=== PATIENT | male | born 1950 | race Caucasian/White ===

== ENCOUNTER 2017-04-21 15:51 | Emergency (ER) | payer OTHER, BC ==
[~2017-04-21] VITALS: Ht 190.5 cm; Wt 67.3 kg
[2017-04-21 17:19] LABS: HEMATOCRIT 42.1 % (38.0-50.0); MCH 28.3 PG (29.0-34.0); MCV 85.7 FL (86-99); MEAN PLAT.VOLUME 10.2 uM^3 (9.0-12.4); PLATELET COUNT 210 K/uL (156-360); RBC DIS.WIDTH-CV 12.7 % (11.8-14.6); RBC DIS.WIDTH-SD 39.5 % (39-53); RED BLOOD COUNT 4.91 M/uL (4.00-5.50); WHITE BLOOD COUNT 5.6 K/uL (4.1-10.2)
[2017-04-21 17:28] LABS: CHLORIDE 109 mEq/L (99-109); SODIUM 144 mEq/L (136-147)
[2017-04-21 17:30] LABS: GLUCOSE 124 mg/dL (70-99)
[2017-04-21 17:32] LABS: ANION GAP 10 MEQ/L (2-14); TOTAL BILIRUBIN 0.7 mg/dL (0.0-1.0)
[2017-04-21 17:34] LABS: ALKALINE PHOSPHATASE 52 IU/L (3-129); GFR ESTIMATE (CALCULATED) 58 mL/min/
[2017-04-21 17:35] LABS: UREA NITROGEN (BUN) 20 mg/dL (9-23)
[2017-04-21 20:43] LABS: TROP-I INTERPRETATION NEGATIVE; TROPONIN-I < 0.01 ng/mL (0.0-0.30)
[2017-04-21 21:33] VITALS: BP 164/89
== END 2017-04-21 21:33 | disposition home or self-care (01) ==
LOC: EME 15:51
PROVIDERS: Emergency Medicine
DX: S22.20XA Unspecified fracture of sternum, initial encounter for closed fracture (principal); S40.811A Abrasion of right upper arm, initial encounter; W17.89XA Other fall from one level to another, initial encounter; Y93.H3 Activity, building and construction; Y92.009 Unspecified place in unspecified non-institutional (private) residence as the place of occurrence of the external cause; E78.5 Hyperlipidemia, unspecified
CPT/HCPCS: 71010; 71260; 73060; 74177; 80053; 84484; 85027; 93005; 99281; 99284; J2270